=== PATIENT | female | born 1980 | race Caucasian/White ===

== ENCOUNTER 2018-04-07 03:57 | Inpatient (IN) | payer OTHER ==
[~2018-04-07] VITALS: Ht 149.9 cm; Wt 68.2 kg
[~2018-04-07 03:57] MED LIST: FERR325T18 PO; HYDR-3240 PO; IBUP-1222 PO; NPH,100V SQ; PREN1TAB25 PO
[2018-04-07] MEDS ORDERED: NEWBORN KIT ONE (04:01)
[2018-04-07] MEDS ORDERED: OXYTOCIN 10 UNITS/ML, 1ML ONE (04:03)
[2018-04-07] MEDS ORDERED: MISOPROSTOL 200 MCG TABLET ONE (04:03)
[2018-04-07] MEDS ORDERED: OXYTOCIN 30U/ 0.9% NaCL 500ML 500 ML ONE ×2 (04:05→06:19)
[2018-04-07] MEDS ORDERED: OXYTOCIN 30U/ 0.9% NaCL 500ML 500 ML IV ONE (04:09)
[2018-04-07] MEDS ORDERED: D5%-LACTATED RINGERS 1,000 ML IV SCH (04:09)
[2018-04-07] MEDS ORDERED: FENTANYL PF 100 MCG/2ML IVPush PRN (04:30)
[2018-04-07] MEDS ORDERED: ONDANSETRON 2MG/ML, 2ML IVPush PRN (04:30)
[2018-04-07] MEDS ORDERED: FENTANYL PF 100 MCG/2ML IV PRN (04:30)
[2018-04-07 04:35] LABS: BASOPHILS % (AUTO) 1 % (0-1); EOSINOPHILS # (AUTO) 0.04 x10^3/uL (0-0.4); EOSINOPHILS % (AUTO) 0 % (1-7); LYMPHOCYTES # (AUTO) 2.47 x10^3/uL (1-3.4); LYMPHOCYTES % (AUTO) 20 % (22-44); MD NO; MEAN CORPUSCULAR HEMOGLOBIN 30.3 pg (27.0-34.8); MEAN CORPUSCULAR HGB CONC 33.9 g/dL (32.4-35.8); MEAN CORPUSCULAR VOLUME 89.4 fL (80-100); MEAN PLATELET VOLUME 7.9 fL (7.4-10.4); MONOCYTES # (AUTO) 0.71 x10^3/uL (0.2-0.8); MONOCYTES % (AUTO) 6 % (2-9); NEUTROPHILS # (AUTO) 9.24 x10^3/uL (1.8-6.8); NEUTROPHILS % (AUTO) 74 % (42-75); PLATELET COUNT 267 x10^3/uL (130-400); RED CELL DISTRIBUTION WIDTH 13.8 % (9.6-15.2)
[2018-04-07] MEDS ORDERED: OXYcodone/APAP 5/325MG TABLET ONE (05:19)
[2018-04-07] MEDS ORDERED: IBUPROFEN 600 MG TABLET ONE (05:19)
[2018-04-07] MEDS: IBUPROFEN 600 MG TABLET PO PRN ×3 (05:25→18:05)
[2018-04-07] MEDS ORDERED: HYDROcodone/APAP 5/325 TABLET PO PRN ×2 (05:30)
[2018-04-07] MEDS ORDERED: MISOPROSTOL 200 MCG TABLET PR PRN (05:30)
[2018-04-07] MEDS ORDERED: ONDANSETRON 2MG/ML, 2ML IV PRN (05:30)
[2018-04-07] MEDS ORDERED: METHYLERGONOVINE 0.2 MG/ML IM PRN (05:30)
[2018-04-07] MEDS ORDERED: CARBOPROST TROMETHAMINE 250 MCG/ML, 1ML IM PRN (05:30)
[2018-04-07] MEDS ORDERED: DOCUSATE 100 MG CAPSULE PO PRN (05:30)
[2018-04-07] MEDS ORDERED: OXYcodone/APAP 5/325MG TABLET PO PRN (05:30)
[2018-04-07] MEDS ORDERED: OXYTOCIN 10 UNITS/ML, 1ML IM PRN (05:30)
[2018-04-07] MEDS ORDERED: ACETAMINOPHEN 325 MG TABLET PO PRN (05:30)
[2018-04-07] MEDS: OXYTOCIN 30U/ 0.9% NaCL 500ML 500 ML IV SCH ×2 (06:24→15:12)
[2018-04-07 07:15] VITALS: BP 102/66
[2018-04-07] MEDS: LACTATED RINGERS 1,000 ML IV SCH ×3 (07:20→20:09)
[2018-04-07 07:45] VITALS: BP 111/73
[2018-04-07] MEDS: PRENATAL VIT/IRON/FA 1 EACH TABLET PO SCH (09:00)
[2018-04-07 11:15] VITALS: BP 102/65
[2018-04-07 13:28] LABS: BASOPHILS # (AUTO) 0.08 x10^3/uL (0-0.1); BASOPHILS % (AUTO) 1 % (0-1); EOSINOPHILS % (AUTO) 0 % (1-7); LYMPHOCYTES # (AUTO) 1.61 x10^3/uL (1-3.4); LYMPHOCYTES % (AUTO) 12 % (22-44); MD NO; MEAN CORPUSCULAR HEMOGLOBIN 30.2 pg (27.0-34.8); MEAN CORPUSCULAR VOLUME 88.7 fL (80-100); MEAN PLATELET VOLUME 8.2 fL (7.4-10.4); MONOCYTES # (AUTO) 0.51 x10^3/uL (0.2-0.8); MONOCYTES % (AUTO) 4 % (2-9); NEUTROPHILS # (AUTO) 11.02 x10^3/uL (1.8-6.8); NEUTROPHILS % (AUTO) 83 % (42-75); PLATELET COUNT 222 x10^3/uL (130-400); RED CELL DISTRIBUTION WIDTH 13.7 % (9.6-15.2)
[2018-04-07 16:00] VITALS: BP 99/63
[2018-04-07 20:01] VITALS: BP 97/60
[2018-04-08] VITALS: BP 95/58
[2018-04-08] MEDS: IBUPROFEN 600 MG TABLET PO PRN ×2 (00:04→08:05)
[2018-04-08] MEDS: OXYTOCIN 30U/ 0.9% NaCL 500ML 500 ML IV SCH ×2 (01:12→11:12)
[2018-04-08] MEDS: LACTATED RINGERS 1,000 ML IV SCH ×2 (04:09→11:30)
[2018-04-08 05:00] VITALS: BP 99/63
[2018-04-08 07:00] VITALS: BP 107/67
[2018-04-08] MEDS: PRENATAL VIT/IRON/FA 1 EACH TABLET PO SCH (09:00)
== END 2018-04-08 14:15 | disposition home or self-care (01) | DRG 807 ==
LOC: LDOP 03:57 → LDIP 04:02 → 2NW 07:09
PROVIDERS: ADMIT Obstetrics & Gynecology; ATTEND Obstetrics & Gynecology
PROC: 0KQM0ZZ Repair Perineum Muscle, Open Approach (ICD-10-PCS; principal; 2018-04-07)
PROC: 10E0XZZ Delivery of Products of Conception, External Approach (ICD-10-PCS; 2018-04-07)
PROC: 10907ZC Drainage of Amniotic Fluid, Therapeutic from Products of Conception, Via Natural or Artificial Opening (ICD-10-PCS; 2018-04-07)
DX: O62.3 Precipitate labor (principal); Z37.0 Single live birth; Z3A.39 39 weeks gestation of pregnancy; O70.1 Second degree perineal laceration during delivery; Z90.49 Acquired absence of other specified parts of digestive tract; Z97.5 Presence of (intrauterine) contraceptive device
CPT/HCPCS: 36415; 85025; 86850; 86900; 90656; G0378; J2590; J7120

== ENCOUNTER → 2018-06-05 | Outpatient (CLI) | payer OTHER | END | disposition home or self-care (01) | LOC: CFH 16:07 | PROVIDERS: ATTEND Obstetrics & Gynecology | DX: Z30.430 Encounter for insertion of intrauterine contraceptive device (principal) | CPT/HCPCS: 76830 ==

== ENCOUNTER 2018-06-27 09:04 | Day surgery (SDC) | payer OTHER ==
[2018-06-26 11:47] LABS: BASOPHILS # (AUTO) 0.04 x10^3/uL (0-0.1); BASOPHILS % (AUTO) 1 % (0-1); EOSINOPHILS % (AUTO) 3 % (1-7); LYMPHOCYTES # (AUTO) 1.79 x10^3/uL (1-3.4); LYMPHOCYTES % (AUTO) 30 % (22-44); MD NO; MEAN CORPUSCULAR HEMOGLOBIN 29.5 pg (27.0-34.8); MEAN CORPUSCULAR HGB CONC 33.4 g/dL (32.4-35.8); MEAN CORPUSCULAR VOLUME 88.1 fL (80-100); MEAN PLATELET VOLUME 8.1 fL (7.4-10.4); MONOCYTES # (AUTO) 0.48 x10^3/uL (0.2-0.8); MONOCYTES % (AUTO) 8 % (2-9); NEUTROPHILS # (AUTO) 3.53 x10^3/uL (1.8-6.8); NEUTROPHILS % (AUTO) 59 % (42-75); PLATELET COUNT 256 x10^3/uL (130-400); RED BLOOD COUNT 4.52 x10^6/uL (3.82-5.3); RED CELL DISTRIBUTION WIDTH 14.1 % (9.6-15.2)
[~2018-06-27] VITALS: Ht 152.4 cm; Wt 58.3 kg
[~2018-06-27 09:04] MED LIST changes: +ACET325T14 PO
[2018-06-27] MEDS ORDERED: LACTATED RINGERS 1,000 ML IV SCH (09:24)
[2018-06-27 09:26] VITALS: BP 107/71
[2018-06-27] MEDS ORDERED: MIDAZOLAM 1 MG/ML, 2ML ONE (10:51)
[2018-06-27] MEDS ORDERED: FENTANYL PF 100 MCG/2ML ONE (10:51)
[2018-06-27] MEDS ORDERED: BUPIVACAINE/PF 0.25% ONE (11:05)
[2018-06-27] MEDS ORDERED: EPINEPHRINE 1 MG/ML, 1ML ONE (11:05)
[2018-06-27] MEDS ORDERED: SILVER NITRATE STICK TP ONE ×2 (11:07→12:11)
[2018-06-27] MEDS ORDERED: ONDANSETRON 2MG/ML, 2ML ONE (11:31)
[2018-06-27] MEDS ORDERED: DEXAMETHASONE 4 MG/ML, 1ML ONE (11:31)
[2018-06-27] MEDS ORDERED: PROPOFOL 10 MG/ML, 20ML ONE (11:31)
[2018-06-27] MEDS ORDERED: KETOROLAC 30 MG/1 ML ONE (11:31)
[2018-06-27] MEDS ORDERED: FENTANYL PF 100 MCG/2ML IV PRN (12:00)
[2018-06-27] MEDS ORDERED: MEPERIDINE/PF 25MG/0.5ML IVPush PRN (12:00)
[2018-06-27] MEDS ORDERED: MORPHINE SULFATE 4 MG/ML, 1ML IVPush PRN (12:00)
[2018-06-27] MEDS ORDERED: PROMETHAZINE 12.5 MG SUPP PR PRN (12:00)
[2018-06-27] MEDS ORDERED: EPHEDRINE 50 MG/ML, 1ML IM PRN (12:00)
[2018-06-27] MEDS ORDERED: PROMETHAZINE 25 MG/ML, 1ML IV PRN (12:00)
[2018-06-27] MEDS ORDERED: OXYcodone 5 MG/5 ML ORAL.SOL UDC PO PRN (12:00)
[2018-06-27] MEDS ORDERED: DIPHENHYDRAMINE 50 MG/ML, 1ML IVPush PRN (12:00)
[2018-06-27] MEDS ORDERED: PROMETHAZINE 25 MG SUPP PR PRN (12:00)
[2018-06-27] MEDS ORDERED: EPHEDRINE 50 MG/ML, 1ML IVPush PRN (12:00)
[2018-06-27] MEDS ORDERED: ONDANSETRON ODT 8 MG PO PRN (12:00)
[2018-06-27] MEDS ORDERED: ACETAMINOPHEN 325 MG TABLET PO PRN (12:00)
[2018-06-27] MEDS ORDERED: ONDANSETRON 2MG/ML, 2ML IV PRN (12:00)
[2018-06-27] MEDS ORDERED: LABETALOL 5MG/ML, 20ML IV PRN (12:00)
== END 2018-06-27 15:35 | disposition home or self-care (01) ==
LOC: OUT 09:04
PROVIDERS: ATTEND Obstetrics & Gynecology
DX: T83.89XA Other specified complication of genitourinary prosthetic devices, implants and grafts, initial encounter (principal); Y83.8 Other surgical procedures as the cause of abnormal reaction of the patient, or of later complication, without mention of misadventure at the time of the procedure; Y92.89 Other specified places as the place of occurrence of the external cause; Z88.8 Allergy status to other drugs, medicaments and biological substances
CPT/HCPCS: 36415; 58301; 84703; 85025; 86850; 86900; J0171; J1100; J1885; J2250; J2405; J2704; J3010; J3490; J7120